=== PATIENT | male | born 2000 | race Caucasian/White ===

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

== ENCOUNTER 2024-05-07 22:00 | Emergency (ER) | payer OTHER ==
[~2024-05-07] VITALS: Ht 182.8 cm; Wt 95.3 kg
== END 2024-05-07 23:48 | disposition home or self-care (01) ==
LOC: ED 22:00
DX: J45.909 Unspecified asthma, uncomplicated (principal); Z88.8 Allergy status to other drugs, medicaments and biological substances